=== PATIENT | male | born 2005 | race Hispanic/Latino ===

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

== ENCOUNTER 2024-06-21 20:51 | Emergency (ER) | payer BC, SELFPAY ==
[2024-06-21] VITALS (7 sets, daily range): BP systolic 103–120; BP diastolic 59–84; PULSE 62–74; RESP 16; TEMP 36.8; O2SAT 97–99; BMI 28.1
--- NOTE | 2024-06-21 21:07 | DI.RAD.S_ITS ---
PROCEDURE: XR SHOULDER RT MIN 2V INDICATIONS: Shoulder pain, fall onto Shoulder Wednesday TECHNIQUE: 3 views of the shoulder were acquired. COMPARISON: None. FINDINGS: Bones: No fractures or dislocations. No suspicious bony lesions. Visualized ribs appear intact. Soft tissues: No suspicious soft tissue calcifications. IMPRESSION: No acute bony abnormality. If symptoms persist with conservative management, consider cross-sectional imaging such as CT or MRI. Approved by: Roxann Reddy M.D.,Ph.D. on 06/21/2024 at 22:39
--- NOTE | 2024-06-21 23:52 | ED_ITS ---
HPI - Extremity Injury (Upper) General Chief Complaint: Extremity Injury, Upper Stated Complaint: rt shoulder pain Time Seen by Provider: 06/21/24 23:52 Source: patient, RN notes reviewed and old records reviewed Mode of arrival: Ambulatory Limitations: no limitations History of Present Illness HPI narrative: 19-year-old male complaint of right shoulder pain intermittent but worsening since fall on Wednesday onto the right shoulder describes tumbling full range of motion but tender to reach upwards. Patient states he does not remember exactly how he landed but states he fell from a standing height sort of landed on his shoulder but does not remember the exact location of his arm. States it has been tender since then he can take it through his full range of motion particularly lifting upwards or reaching across to the opposite side causes discomfort sort of at the AC region. Patient states no weakness. He does not appreciate any numbness tingling sensation. He has not had any prior injuries to the area. Denies any other injuries. States no daily medications. No prior surgeries. No known drug allergies. 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 He has not taken anything for pain at home. Presents today as his symptoms have not improved. Related Data Home Medications Medication Instructions Recorded Confirmed No Known Home Medications 02/02/18 06/20/20 Allergies Allergy/AdvReac Type Severity Reaction Status Date / Time No Known Drug Allergies Allergy Verified 06/20/20 16:09 Review of Systems Review of Systems ROS Unobtainable: All systems reviewed & are unremarkable except as noted in HPI and below Patient History Medical History (Updated 06/22/24 @ 00:17 by Saloni Guillermo DO) Immunizations up to date Surgical History History of tonsillectomy Social History Smoking Status: Never smoker Smoking Status: Never smoker Exam Narrative Exam Narrative: GENERAL: Alert and oriented x three, well-appearing male in mild distress HEENT: Head normocephalic, atraumatic, EOMI, pupils reactive, face symmetric, moist mucous membranes NECK: Supple, full range of motion CARDIOVASCULAR: Regular rate and rhythm without murmurs, rubs or gallops. RESPIRATORY: Breath sounds equal bilaterally, no wheezes rales or rhonchi. ABDOMEN: Soft, nontender. Normoactive bowel sounds all 4 quadrants. No guarding or rebound, rigidity, no mass : No CVA tenderness EXTREMITIES: Normal range of motion, no clubbing or edema. Neurovascularly intact. Patient has some mild tenderness over the distal AC joint. No obvious deformity. He has full range of motion normal strength. No numbness tingling or weakness no other bony tenderness throughout the upper extremity, clavicle or shoulder. No ecchymosis or skin changes. 2+ radial pulse. Normal sensation throughout. NEUROLOGICAL: Cranial nerves II through XII grossly intact. Moving all extremities SKIN: Warm, dry, no petechiae, no rashes or lesions. Initial Vital Signs Initial Vital Signs: Vital Signs Temperature 98.2 F 06/21/24 21:01 Pulse Rate 64 06/21/24 21:01 Respiratory Rate 16 06/21/24 21:01 Blood Pressure 120/84 06/21/24 21:01 Pulse Oximetry 98 06/21/24 21:01 Oxygen Delivery Method Room Air 06/21/24 21:01 Course Orders Ordered: ED Orders 06/21/24 21:07 XR shoulder RT min 2V Stat Vital Signs Vital signs: Vital Signs - 8 hr 06/21/24 21:01 06/21/24 21:48 06/21/24 21:49 Temperature 98.2 F Pulse Rate 64 63 Pulse Rate [Right Radial] 74 Respiratory Rate 16 Blood Pressure 120/84 Pulse Oximetry 98 98 Oxygen Delivery Method Room Air 06/21/24 21:49 06/21/24 21:49 06/21/24 22:00 Temperature Pulse Rate 62 Pulse Rate [Right Radial] Respiratory Rate Blood Pressure 115/71 116/69 Pulse Oximetry 99 Oxygen Delivery Method 06/21/24 22:00 06/21/24 22:30 06/21/24 22:30 Temperature Pulse Rate 62 64 Pulse Rate [Right Radial] Respiratory Rate Blood Pressure 112/60 Pulse Oximetry 99 97 Oxygen Delivery Method 06/21/24 23:00 06/21/24 23:00 06/21/24 23:30 Temperature Pulse Rate 62 63 Pulse Rate [Right Radial] Respiratory Rate Blood Pressure 103/59 L Pulse Oximetry 97 97 Oxygen Delivery Method 06/21/24 23:30 06/22/24 00:00 06/22/24 00:00 Temperature Pulse Rate 65 Pulse Rate [Right Radial] Respiratory Rate Blood Pressure 105/60 107/58 L Pulse Oximetry 97 Oxygen Delivery Method MDM - Extremity Injury (Upper) Imaging Data Extremity x-ray #1: Radiologist's Impression: [address] [address] XRay Report Signed Patient: Sae Kan I MR#: [id number] : 2005 Acct:[id number] Age/Sex: 19 / M Date of Service: 06/21/24 Loc: ED Accession Number: [id number] Procedure: XR shoulder RT min 2V Ordering Provider: Saloni Guillermo D.O. PROCEDURE: XR SHOULDER RT MIN 2V INDICATIONS: Shoulder pain, fall onto Shoulder Wednesday TECHNIQUE: 3 views of the shoulder were acquired. COMPARISON: None. FINDINGS: Bones: No fractures or dislocations. No suspicious bony lesions. Visualized ribs appear intact. Soft tissues: No suspicious soft tissue calcifications. IMPRESSION: No acute bony abnormality. If symptoms persist with conservative management, consider cross-sectional imaging such as CT or MRI. Approved by: Roxann Reddy M.D.,Ph.D. on 06/21/2024 at 22:39 [facility] Narrative Medical decision making narrative: Shoulder xray shows no acute change. Discussed with patient had a fall does not remember exactly how he landed on his shoulder but did land on his shoulder from a standing height. Has had some persistent tenderness in the AC joint but no numbness, tingling or weakness on exam he was slightly tender but no other significant findings. Discussed with patient decreased activity he works with scaffolding but states he can take break. Discussed if he is persistent symptoms for more than 1-2 weeks needs follow up for recheck. Discharge Plan Departure Patient Disposition: Home Clinical Impression: Pain in right shoulder Instructions: DI for Shoulder Pain Activity Restrictions/Additional Instructions: Follow up if your symptoms are persisting for more than 1-2 weeks, contacts included below for primary care or orthopedic surgery if your symptoms are persisting. You can take acetaminophen up to a 1000 mg every 6 hours and ibuprofen up to 600 mg every 6 hours for discomfort. I would recommend decreased activity for your shoulder this week. If you develop fevers, redness or swelling, rapidly worsening pain, inability to lift or move your arm, new weakness, loss of sensation or other new or concerning changes return to the emergency department. Prescriptions: No Action No Known Home Medications Referrals: Meghan Hart MD [Primary Care Provider] - Stand Alone Forms: Patient Portal/API/Survey
[2024-06-22] VITALS: BP 107/58; PULSE 65; O2SAT 97
== END 2024-06-22 00:20 | disposition home or self-care (01) ==
PROVIDERS: Emergency Provider Emergency Medicine; Family Provider Family Medicine; PCP Family Medicine
DX: M25.511 Pain in right shoulder (principal); W19.XXXA Unspecified fall, initial encounter
CPT/HCPCS: 73030; 99281; 99283

== ENCOUNTER → 2025-05-21 20:08 | Outpatient (ROUT) | payer SELFPAY ==
[2025-05-21 22:03] LABS: Urine N gonorrhoeae NOT DETECTED
[2025-05-21 22:20] LABS: Urine Chlamydia NOT DETECTED
== END ==
PROVIDERS: Family Provider Family Medicine; PCP Family Medicine; Visit Provider Nurse Practitioner Family
DX: Z11.3 Encounter for screening for infections with a predominantly sexual mode of transmission (principal)
CPT/HCPCS: 87491; 87591